=== PATIENT | female | born 1970 | race Caucasian/White ===

== ENCOUNTER 2017-05-09 23:08 | Emergency (ER) | payer OTHER ==
[~2017-05-09] VITALS: Ht 147.3 cm; Wt 69.5 kg
[~2017-05-09 23:08] MED LIST: FLEXAMINE
[2017-05-09 23:14] VITALS: Ht 147.3 cm; Wt 69.5 kg
[2017-05-10] MEDS ORDERED: METOCLOPRAMIDE 10 MG INJ IV ONE
[2017-05-10] MEDS ORDERED: SOD CHLORIDE 0.9% 1,000 ML IV ONE
[2017-05-10] MEDS ORDERED: DIPHENHYDRAMINE 50 MG INJ IV ONE
[2017-05-10] MEDS ORDERED: BUTA1CAP38 PO (02:33)
[2017-05-10] MEDS ORDERED: PROC10TA10 PO (02:33)
[2017-05-10 02:40] VITALS: BP 102/73; PULSE 70; RESP 14; TEMP 97.9
--- NOTE | 2017-05-10 02:44 | ERD ---
ER Documentation Chief Complaint Chief Complaint dizziness,TEJADA,nausea HPI 46-year-old male comes in complaining of a headache that began several hours ago and got gradually worse. Also complains of lightheadedness and nausea with no vomiting. Has no neurological deficits. She occasionally does get headaches is not the worst headache of her life. ROS All systems reviewed and are negative except as per history of present illness. Medications Home Meds Active Scripts Djywsgsgod-Jolgdbmvtdphz-Pfjgbzcm* (Fioricet*) 50-300-40 Mg Capsule, 1 CAP PO Q4H Y for HEADACHE, #10 CAP Prov:TAMMY PERALTA DO 05/10/17 Prochlorperazine* (Prochlorperazine*) 10 Mg Tablet, 10 MG PO Q12 Y for NAUSEA, # 14 TAB Prov:TAMMY PERALTA DO 05/10/17 Reported Medications [Flexamine] No Conflict Check, DAILY 08/11/13 Allergies Allergies: Coded Allergies: No Known Allergy (Unverified , 08/11/13) PMhx/Soc Medical and Surgical Hx: pt denies Medical Hx History of Surgery: Yes (BTL) Anesthesia Reaction: No Hx Neurological Disorder: No Hx Respiratory Disorders: No Hx Cardiac Disorders: No Hx Psychiatric Problems: No Hx Miscellaneous Medical Probl: No Hx Alcohol Use: No Hx Substance Use: No Hx Tobacco Use: No Smoking Status: Never smoker Physical Exam Vitals Vital Signs Date Time Temp Pulse Resp B/P Pulse Ox O2 Delivery O2 Flow Rate FiO2 05/10/17 02:00 97.9 88 12 111/77 99 Room Air 05/10/17 01:00 78 14 106/81 99 Room Air 05/10/17 00:00 80 14 136/86 99 Room Air 05/09/17 23:30 98.0 80 16 140/87 99 Room Air 05/09/17 23:14 97.6 79 18 156/82 100 Physical Exam Const: [] Distress appears very uncomfortable Head: Atraumatic Eyes: Normal Conjunctiva, EOMI, PERRLA ENT: Normal External Ears, Nose and Mouth. Neck: Full range of motion..~ No meningismus. Skin: No petechiae or rashes Back: No midline or flank tenderness Ext: No cyanosis, or edema Neur: Awake and alert oriented 3, cranial nerves II through XII intact, no cerebellar deficits, normal gait. Psych: Normal Mood and Affect Results 24 hrs Current Medications Medications (Trade) Dose Ordered Sig/Olga Lidia Route PRN Reason Start Time Stop Time Status Last Admin Dose Admin Diphenhydramine HCl (Benadryl) 12.5 mg ONCE ONCE IV 05/10/17 00:00 05/10/17 00:01 DC 05/10/17 00:07 Metoclopramide HCl 10 mg 10 mg ONCE ONCE IV 05/10/17 00:00 05/10/17 00:01 DC 05/10/17 00:07 Sodium Chloride (NS) 1,000 ml @ 1,000 mls/hr Q1H ONCE IV 05/10/17 00:00 05/10/17 00:59 DC 05/10/17 00:08 Procedures/MDM Acute headache with nausea and photophobia. Headache was easily resolved with IV headache cocktail of Benadryl 5 mg IV, Reglan 10 mg IV and normal saline IV. Within 10 minutes this completely resolved her headache she was feeling much better. I have very low suspicion for subarachnoid hemorrhages as his headache was easily alleviated without pain medication and was not the worst of her life or was not sudden onset. He is feeling much better and requests to leave. I will discharge her with Fioricet and Compazine for any future headaches that she might have strict return precautions to the ER for any neurological symptoms or vomiting. Primary care follow-up Departure Diagnosis: Primary Impression: Acute headache Condition: Stable Patient Instructions: Headache, Unspecified Additional Instructions: Call your primary care doctor TOMORROW for an appointment during the next 1-2 days.See the doctor sooner or return here if your condition worsens before your appointment time. TAMMY PERALTA DO May 10, 2017 02:44
== END 2017-05-10 02:45 | disposition home or self-care (01) ==
LOC: E/R 23:08
DX: R51 Headache (principal); R40.2142 Coma scale, eyes open, spontaneous, at arrival to emergency department; R40.2252 Coma scale, best verbal response, oriented, at arrival to emergency department; R40.2362 Coma scale, best motor response, obeys commands, at arrival to emergency department
CPT/HCPCS: 96374; 96375; J1200; J2765; J7030; Z7502

== ENCOUNTER 2018-02-13 03:47 | Emergency (ER) | END 2018-02-13 04:47 | disposition home or self-care (01) ==

== ENCOUNTER 2018-02-24 04:01 | Emergency (ER) | END 2018-02-24 05:40 | disposition home or self-care (01) ==